=== PATIENT | female | born 1965 | race Caucasian/White ===

== ENCOUNTER 2018-12-17 15:45 | Inpatient (IN) | payer OTHER ==
[~2018-12-17] VITALS: Ht 162.6 cm; Wt 115.7 kg
[2019-01-08] MEDS ORDERED: SYNTHROID88 MCG (09:47)
[2019-01-08] MEDS ORDERED: ESTR0.624 (09:48)
[2019-01-08] MEDS ORDERED: VISTARIL50 MG/ML (09:49)
[2019-01-08] MEDS ORDERED: TOPROL XL50 M1 (09:50)
[2019-01-08] MEDS ORDERED: DELTASONE20 MG (09:50)
[2019-01-24] MEDS ORDERED: SYNTHROID88 MCG PO (10:53)
[2019-01-24] MEDS ORDERED: TOPROL XL50 M1 PO (10:53)
[2019-01-24] MEDS ORDERED: INTESTINEX680 M1 PO (10:53)
== END 2019-01-24 11:30 | disposition home or self-care (01) | DRG 330 ==
LOC: O/R 01-15 05:15 → SURG 01-15 05:15
PROVIDERS: ADMIT Colon & Rectal Surgery
PROC: 0DJD8ZZ Inspection of Lower Intestinal Tract, Via Natural or Artificial Opening Endoscopic (ICD-10-PCS; 2019-01-15)
PROC: 4A12X4Z Monitoring of Cardiac Electrical Activity, External Approach (ICD-10-PCS; 2019-01-15)
PROC: 4A033R1 Measurement of Arterial Saturation, Peripheral, Percutaneous Approach (ICD-10-PCS; 2019-01-15)
PROC: 0DTN4ZZ Resection of Sigmoid Colon, Percutaneous Endoscopic Approach (ICD-10-PCS; principal; 2019-01-15 10:30)
PROC: 02HV33Z Insertion of Infusion Device into Superior Vena Cava, Percutaneous Approach (ICD-10-PCS; 2019-01-22)
PROC: 30233N1 Transfusion of Nonautologous Red Blood Cells into Peripheral Vein, Percutaneous Approach (ICD-10-PCS; 2019-01-22)
DX: K57.20 Diverticulitis of large intestine with perforation and abscess without bleeding (principal); D62 Acute posthemorrhagic anemia; K91.0 Vomiting following gastrointestinal surgery; K63.89 Other specified diseases of intestine; E66.01 Morbid (severe) obesity due to excess calories; E03.8 Other specified hypothyroidism; I11.9 Hypertensive heart disease without heart failure; E11.22 Type 2 diabetes mellitus with diabetic chronic kidney disease; I13.10 Hypertensive heart and chronic kidney disease without heart failure, with stage 1 through stage 4 chronic kidney disease, or unspecified chronic kidney disease; N18.2 Chronic kidney disease, stage 2 (mild); G47.33 Obstructive sleep apnea (adult) (pediatric); Z79.4 Long term (current) use of insulin

== ENCOUNTER 2020-01-31 08:04 | Day surgery (SDC) | payer OTHER ==
[~2020-01-31 08:04] MED LIST: DELTASONE20 MG; ESTR0.624; INTESTINEX680 M1 PO; SYNTHROID88 MCG; SYNTHROID88 MCG PO; TOPROL XL50 M1; TOPROL XL50 M1 PO; VISTARIL50 MG/ML
== END 2020-01-31 14:30 | disposition home or self-care (01) ==
LOC: AMB-ENDOS 08:04
PROVIDERS: ATTEND Colon & Rectal Surgery
DX: K62.89 Other specified diseases of anus and rectum (principal); K64.1 Second degree hemorrhoids; Z20.828 Contact with and (suspected) exposure to other viral communicable diseases

== ENCOUNTER 2020-02-10 09:42 | Outpatient (CLI) | payer OTHER | END 2020-02-10 09:51 | disposition home or self-care (01) | LOC: SONOGRAMA 09:42 | PROVIDERS: ATTEND Pathology Anatomic Pathology & Clinical Pathology | DX: E04.1 Nontoxic single thyroid nodule (principal) ==

== ENCOUNTER → 2021-01-11 | Outpatient (CLI) | payer OTHER | END | disposition home or self-care (01) | LOC: SONOGRAMA 11:35 | PROVIDERS: ATTEND Pathology Anatomic Pathology & Clinical Pathology | DX: E04.1 Nontoxic single thyroid nodule (principal) ==